=== PATIENT | male | born 2000 | race Caucasian/White ===

== ENCOUNTER 2024-08-07 08:17 | Outpatient (AMB) | payer OTHER, SELFPAY ==
--- NOTE | 2024-08-07 08:19 | MHC.OFFWIV ---
Intake Vital Signs 08/07/24 09:33 Height 6 ft Weight 180 lb 8 oz BMI 24.5 BP 115/61 Blood Pressure Location Rt brachial Position Sitting Respiration 14 Pulse 109 H Pulse Source Pulse Oximeter Temp 100.6 F H Temp Source Skin Pulse Oximetry (%) 98 Oxygen Delivery Method Room Air Intake Visit Reasons: FEVER/BACKPAIN/COUGH Intake Note: Patient complaining of fever, chills, coughing, and headache x4 days Allergies No Known Allergies Allergy (Verified 08/07/24 10:00) Medication List - Last Reconciled 08/07/24 by Marika Rachel, RECEIVING [employer]PERATOR- cetirizine (Zyrtec) 10 mg PO DAILY PRN Do you need a note to return to daycare/school/sports/work: Yes HPI HPI Comments History of Present Illness Details History of Present Illness The patient is a 24-year-old male presenting with fever and cough. He reports experiencing fever, chills, cough, headache, and a sore throat over the past four days. The fever is described as the most bothersome symptom, followed by a persistent cough causing discomfort in the head. The patient denies recent exposure to sick contacts or travel. He has been self-medicating with ibuprofen and Benadryl for symptom relief. He is up to date on influenza and COVID-19 vaccinations and has no known drug allergies. The patient recalls a history of whooping cough during childhood, which required an inhaler temporarily. Additionally, he had frequent episodes of tonsillitis growing up. There are no urinary symptoms or gastrointestinal issues, and he maintains adequate hydration. Physical Exam Awake alert NAD, mildly ill appearing Sclera and conjunctiva clear bilat Nares patent,clear discharge, turbinates within normal limits, no sinus tenderness with palpation bilat TM intact and clear bilat, + erythema MMM, pharynx erythema w/o exudate Mildly tachy LS CTAB, dry cough w/o distress Plan - Initiate viral swab testing to evaluate for COVID-19, Influenza, and Respiratory Syncytial Virus RSV) with results to be communicated by phone. - Empirical treatment for cough with prescribed cough medication and consideration of albuterol inhaler for symptomatic relief. - Recommend alternating ibuprofen and acetaminophen for fever and body aches management, encouraging food or milk intake prior to ibuprofen administration to mitigate gastrointestinal discomfort. - Monitor symptom progression: should the fever persist beyond 7 to 10 days or symptom severity increase, further evaluation including consideration of a bacterial etiology and possible antibiotic intervention may be warranted. - Reinforce the importance of follow-up with primary care, particularly if symptoms do not improve or exacerbate. He will be called w results of viral swab once avail, if flu will send tamiflu, if covid or rsv, supportive care. Patient was informed and verbally consented to the use of an ambient scribe for clinic note documentation during this visit. This note is constructed using voice recognition software. While every effort has been made to ensure accuracy in veteran appeals reviewer, still errors may have been included Sometimes, these errors may affect the content or meaning of the given sentence . Total time spent caring for the patient today was 30 minutes. This includes time spent before the visit reviewing the chart, time spent during the visit, and time spent after the visit on documentation Physical Exam Vital Signs: Last Vital Signs Temp 100.6 F H 08/07/24 09:33 Pulse 109 H 08/07/24 09:33 Resp 14 08/07/24 09:33 BP 115/61 08/07/24 09:33 Pulse Ox 98 08/07/24 09:33 Oxygen Delivery Method Room Air 08/07/24 09:33 BMI result Body Mass Index 24.5 Assessment & Plan Assessment & Plan (1) Flu-like symptoms: Code(s): R68.89 - Other general symptoms and signs Plan . Orders: Orders SARS-CoV2/FLU/RSV Today R09.89 - Other specified symptoms and signs involving the circulatory and respiratory systems Medications: New albuterol sulfate 90 mcg/actuation 2 puffs inhalation Q4-6H PRN 8.5 grams 0RF shortness of breath or wheezing 30 days benzonatate 100 mg PO TID PRN 30 caps 1RF cough 10 days ibuprofen 800 mg PO Q8H PRN 30 tabs 0RF pain/FEVER Patient Instructions: Plan - Initiate viral swab testing to evaluate for COVID-19, Influenza, and Respiratory Syncytial Virus RSV) with results to be communicated by phone. - Empirical treatment for cough with prescribed cough medication and consideration of albuterol inhaler for symptomatic relief. - Recommend alternating ibuprofen and acetaminophen for fever and body aches management, encouraging food or milk intake prior to ibuprofen administration to mitigate gastrointestinal discomfort. - Monitor symptom progression: should the fever persist beyond 7 to 10 days or symptom severity increase, further evaluation including consideration of a bacterial etiology and possible antibiotic intervention may be warranted. - Reinforce the importance of follow-up with primary care, particularly if symptoms do not improve or exacerbate. Coding Level of Care Code Est Pt Level 4 (79189) Diagnoses Flu-like symptoms R68.89
[2024-08-07 09:33] VITALS: BP 115/61; PULSE 109; RESP 14; TEMP 38.1; O2SAT 98; BMI 24.5
== END 2024-08-07 14:18 | disposition home or self-care (01) ==
LOC: HO.HMCWIW 08:17
PROVIDERS: Visit Provider Nurse Practitioner Family
DX: R68.89 Other general symptoms and signs (principal)

== ENCOUNTER 2024-08-07 08:17 | Outpatient (REF) | payer OTHER, SELFPAY ==
[2024-08-09 11:50] LABS: Influenza A PCR NEGATIVE (Negative); Influenza B PCR NEGATIVE (Negative); Resp Syncy Virus RNA Qual PCR NEGATIVE (Negative); SARS COV2 PCR INHOUSE NEGATIVE (Negative)
== END 2024-08-07 08:18 | disposition home or self-care (01) ==
LOC: HO.LNP 08:17
PROVIDERS: Visit Provider Nurse Practitioner Family
DX: R05.3 Chronic cough (principal); R09.89 Other specified symptoms and signs involving the circulatory and respiratory systems
CPT/HCPCS: 0241U